=== PATIENT | female | born 1990 | race Caucasian/White ===

== ENCOUNTER 2018-01-18 08:59 | Day surgery (SDC) | payer BC, SELFPAY ==
[~2018-01-18] VITALS: Ht 157.5 cm; Wt 48.5 kg
[~2018-01-18 08:59] MED LIST: DASETTA1 EAC1 PO; IBUP800 PO; MONDOXYNE NL100 MG PO; NAPR500 PO; Naprosyn500 MG PO; OXYACE5T PO; PROM25 PO; RANI150 PO; TRAM50 PO; Ultram50 MG PO; VITAMIN C500 MG PO; Verotin-Gr Cap1 EACH PO
== END 2018-01-18 22:43 | disposition home or self-care (01) ==
LOC: ORSCMMR 08:59 → ORD 10:30 → ORSCMMR 10:30
PROVIDERS: Obstetrics & Gynecology
PROC: 0U5F4ZZ Destruction of Cul-de-sac, Percutaneous Endoscopic Approach (ICD-10-PCS; principal; 2018-01-18 10:30)
DX: N94.89 Other specified conditions associated with female genital organs and menstrual cycle (principal); R10.9 Unspecified abdominal pain; N80.3 Endometriosis of pelvic peritoneum
CPT/HCPCS: J1100; J1885; J2250; J2405; J2550; J2710; J2765; J3010; J7120

== ENCOUNTER 2018-01-24 16:38 | Emergency (ER) | payer BC, SELFPAY ==
[~2018-01-24] VITALS: Ht 157.5 cm; Wt 48.5 kg
[2018-01-24 17:58] LABS: BASOPHILS ABSOLUTE AUTO 0.04 K/mm3 (0.00-0.23); BASOPHILS PERCENT AUTO 1 % (0-2); EOSINOPHILS ABSOLUTE AUTO 0.18 K/mm3 (0.00-0.68); EOSINOPHILS PERCENT AUTO 3 % (0-6); Hematocrit 42.6 % (33.0-51.0); Hemoglobin 14.5 g/dL (11.5-16.0); IMMATURE GRAN ABSOLUTE AUTO 0.01 K/mm3 (0.00-0.10); IMMATURE GRAN PERCENT AUTO 0 % (0-1); LYMPHOCYTES ABSOLUTE AUTO 2.12 K/mm3 (0.84-5.20); LYMPHOCYTES PERCENT AUTO 29 % (21-46); MONOCYTES ABSOLUTE AUTO 0.43 K/mm3 (0.16-1.47); MONOCYTES PERCENT AUTO 6 % (4-13); Mean Corpuscular HGB 31.9 pg (26.0-34.0); Mean Corpuscular Volume 94 fL (80-100); Mean Platelet Volume 10.1 fL (9.1-12.4); NEUTROPHILS ABSOLUTE AUTO 4.54 K/mm3 (1.96-9.15); NEUTROPHILS PERCENT AUTO 62 % (41-73); Platelet Count 205 K/mm3 (150-400); RDW Coefficient Variation 11.9 % (11.7-14.2); RDW Standard Deviation 41.2 fL (35.1-46.3); Red Blood Cell Count 4.54 M/mm3 (3.80-5.20); White Blood Cell Count 7.32 K/mm3 (4.00-11.30)
[2018-01-24 18:24] LABS: Alanine Aminotransfer (ALT/SGP 25 U/L (12-78); Albumin, Blood 3.6 g/dL (3.4-5.0); Albumin/Globulin Ratio 0.9 (0.8-1.8); Alk Phos 59 U/L (50-136); Anion Gap 7 mmol/L (6-16); Aspartate Aminotrans (AST/SGOT 12 U/L (12-37); Bilirubin, Total 0.2 mg/dL (0.1-1.0); Blood Urea Nitrogen 10 mg/dL (8-24); Bun/Creatinine Ratio 13.5 (12.0-20.0); CO2, Blood 25 mmol/L (21-32); Calcium, Blood 8.9 mg/dL (8.5-10.1); Chloride, Blood 109 mmol/L (98-108); Creatinine, Blood 0.74 mg/dL (0.40-1.00); Globulin, Blood 4.2 g/dL (2.2-4.0); Glomerular Filtration Rate >60 (60-); Glucose, Blood 98 mg/dL (70-99); Potassium, Blood 3.6 mmol/L (3.5-5.5); Sodium, Blood 141 mmol/L (136-145); Total Protein, Blood 7.8 g/dL (6.4-8.2)
[2018-01-24] MEDS ORDERED: OXYCODONE (19:43)
== END 2018-01-24 21:38 | disposition home or self-care (01) ==
LOC: ER 16:38
PROVIDERS: Physician Assistant
DX: G89.18 Other acute postprocedural pain (principal); R07.9 Chest pain, unspecified; Z79.899 Other long term (current) drug therapy
CPT/HCPCS: 36415; 71260; 80053; 81025; 85025; 85379; 93005; 93010; 99284-25; Q9967

== ENCOUNTER 2018-12-03 06:23 | Day surgery (SDC) | payer OTHER ==
[~2018-12-03] VITALS: Ht 160 cm; Wt 49.1 kg
[~2018-12-03 06:23] MED LIST changes: +APRI1 EACH PO; +Allegra-D 12 H1 EACH PO; +OXYCODONE
--- NOTE | 2018-12-03 08:59 | NUR ---
12/03/18 0859 Kelsi Reina 0843; RECEIVED REPORT FROM [facility]. PT IS STILL NAUSEATED UPON ARRIVAL TO SDU, SHE WAS MEDICATED IN PAR. PT IS RESTING WITH HER EYES CLOSED IN ATTEMPT TO RELEIVE NAUSEA WHILE MEDICATION HAVE A CHANCE TO WORK. WILL MONITOR AND LET HER REST FOR A FEW MINUTES. MOTHER IS AT CHAIRSIDE. CALL LIGHT IN REACH.
== END 2018-12-03 10:18 | disposition home or self-care (01) ==
LOC: ORSCSDS 06:23
PROVIDERS: Obstetrics & Gynecology
PROC: 0U5F4ZZ Destruction of Cul-de-sac, Percutaneous Endoscopic Approach (ICD-10-PCS; principal; 2018-12-03 07:30)
PROC: 3E1P78X Irrigation of Female Reproductive using Irrigating Substance, Via Natural or Artificial Opening, Diagnostic (ICD-10-PCS; principal; 2018-12-03 07:30)
DX: N80.3 Endometriosis of pelvic peritoneum (principal); N94.89 Other specified conditions associated with female genital organs and menstrual cycle
CPT/HCPCS: J0171; J1100; J1885; J2250; J2370; J2405; J2550; J2704; J2710; J2765; J3010; J7120; Q9968

== ENCOUNTER → 2019-03-17 | Outpatient (CLI) | payer OTHER ==
[2019-03-19 04:07] LABS: CHLAMYDIA TRACHOMATIS, NAA Negative (Negative); NEISSERIA GONORRHOEAE, NAA Negative (Negative)
== END | disposition home or self-care (01) ==
LOC: LAB 11:10 → LAB SHORT 11:10
PROVIDERS: Obstetrics & Gynecology
DX: Z34.81 Encounter for supervision of other normal pregnancy, first trimester (principal)
CPT/HCPCS: 87491; 87591; G0123

== ENCOUNTER → 2019-09-04 | Outpatient (CLI) | payer OTHER ==
[~2019-09-04] MED LIST changes: +Calcium Acetat667 MG; +MAGCHL64ER; +PRENATAL TABLE1 EAC2 PO; +Percocet 5-3251 EACH PO
== END | disposition home or self-care (01) ==
LOC: LAB SHORT 18:09 → LAB 18:09
DX: Z34.83 Encounter for supervision of other normal pregnancy, third trimester (principal); Z3A.36 36 weeks gestation of pregnancy
CPT/HCPCS: 87081; 87653

== ENCOUNTER 2019-09-22 14:19 | Inpatient (IN) | payer OTHER ==
[~2019-09-22] VITALS: Ht 160 cm; Wt 59.8 kg
[~2019-09-22 14:19] MED LIST changes: -Calcium Acetat667 MG; -MAGCHL64ER; -PRENATAL TABLE1 EAC2 PO; -Percocet 5-3251 EACH PO
[2019-09-25] MEDS ORDERED: PRENATAL TABLE1 EAC2 PO (07:23)
[2019-09-25] MEDS ORDERED: MAGCHL64ER (07:24)
[2019-09-25] MEDS ORDERED: Calcium Acetat667 MG (07:24)
[2019-09-25 08:15] LABS: BASOPHILS ABSOLUTE AUTO 0.05 K/mm3 (0.00-0.23); BASOPHILS PERCENT AUTO 1 % (0-2); EOSINOPHILS ABSOLUTE AUTO 0.12 K/mm3 (0.00-0.68); EOSINOPHILS PERCENT AUTO 2 % (0-6); Hematocrit 33.8 % (33.0-51.0); Hemoglobin 11.2 g/dL (11.5-16.0); IMMATURE GRAN ABSOLUTE AUTO 0.03 K/mm3 (0.00-0.10); IMMATURE GRAN PERCENT AUTO 1 % (0-1); LYMPHOCYTES ABSOLUTE AUTO 1.76 K/mm3 (0.84-5.20); LYMPHOCYTES PERCENT AUTO 27 % (21-46); MONOCYTES ABSOLUTE AUTO 0.51 K/mm3 (0.16-1.47); MONOCYTES PERCENT AUTO 8 % (4-13); Mean Corpuscular HGB 31.6 pg (26.0-34.0); Mean Corpuscular HGB Conc 33.1 g/dL (31.5-36.5); Mean Corpuscular Volume 96 fL (80-100); Mean Platelet Volume 9.6 fL (9.1-12.4); NEUTROPHILS ABSOLUTE AUTO 3.97 K/mm3 (1.96-9.15); NEUTROPHILS PERCENT AUTO 62 % (41-73); Platelet Count 121 K/mm3 (150-400); RDW Coefficient Variation 13.2 % (11.7-14.2); RDW Standard Deviation 45.7 fL (35.1-46.3); Red Blood Cell Count 3.54 M/mm3 (3.80-5.20); White Blood Cell Count 6.44 K/mm3 (4.00-11.30)
[2019-09-25 10:41] LABS: PCO2 Cord - Arterial 46.3 mmHg (40-50); pH Cord - Arterial 7.31 (7.28-7.35)
[2019-09-25 10:44] LABS: PCO2 Cord - Venous 37.5 mmHg (40-50); PO2 Cord - Venous 26.1 mmHg (28-32); pH Umbilical Cord - Venous 7.38 (7.26-7.35)
[2019-09-26 05:24] LABS: BASOPHILS ABSOLUTE AUTO 0.04 K/mm3 (0.00-0.23); BASOPHILS PERCENT AUTO 1 % (0-2); EOSINOPHILS ABSOLUTE AUTO 0.16 K/mm3 (0.00-0.68); EOSINOPHILS PERCENT AUTO 2 % (0-6); Hematocrit 26.6 % (33.0-51.0); Hemoglobin 8.7 g/dL (11.5-16.0); IMMATURE GRAN ABSOLUTE AUTO 0.03 K/mm3 (0.00-0.10); IMMATURE GRAN PERCENT AUTO 0 % (0-1); LYMPHOCYTES ABSOLUTE AUTO 1.72 K/mm3 (0.84-5.20); LYMPHOCYTES PERCENT AUTO 23 % (21-46); MONOCYTES PERCENT AUTO 5 % (4-13); Mean Corpuscular HGB 31.5 pg (26.0-34.0); Mean Corpuscular HGB Conc 32.7 g/dL (31.5-36.5); Mean Corpuscular Volume 96 fL (80-100); Mean Platelet Volume 9.7 fL (9.1-12.4); NEUTROPHILS ABSOLUTE AUTO 5.24 K/mm3 (1.96-9.15); NEUTROPHILS PERCENT AUTO 69 % (41-73); Platelet Count 119 K/mm3 (150-400); RDW Coefficient Variation 13.5 % (11.7-14.2); RDW Standard Deviation 47.5 fL (35.1-46.3); Red Blood Cell Count 2.76 M/mm3 (3.80-5.20); White Blood Cell Count 7.59 K/mm3 (4.00-11.30)
[2019-09-26] MEDS ORDERED: IBUP800 PO (16:14)
[2019-09-26] MEDS ORDERED: Percocet 5-3251 EACH PO (16:15)
== END 2019-09-26 16:30 | disposition home or self-care (01) | DRG 785 ==
LOC: BC 09-25 07:09
PROVIDERS: ADMIT Obstetrics & Gynecology
PROC: 10D00Z1 Extraction of Products of Conception, Low, Open Approach (ICD-10-PCS; principal; 2019-09-25 09:30)
PROC: 0UT70ZZ Resection of Bilateral Fallopian Tubes, Open Approach (ICD-10-PCS; 2019-09-25 09:30)
DX: O34.211 Maternal care for low transverse scar from previous cesarean delivery (principal); Z37.0 Single live birth; Z3A.39 39 weeks gestation of pregnancy
CPT/HCPCS: 36415; 82803; 85025; 85460; 86850; 86870; 86900; 86901; 88302; 96372; J0694; J1885; J2370; J2405; J2590; J2765; J2791; J3010; J7120

== ENCOUNTER → 2021-08-24 | Outpatient (CLI) | payer BC, OTHER ==
[~2021-08-24] MED LIST changes: +Calcium Acetat667 MG; +MAGCHL64ER; +PRENATAL TABLE1 EAC2 PO; +Percocet 5-3251 EACH PO
== END | disposition home or self-care (01) ==
LOC: LAB 10:15 → LAB SHORT 10:15
DX: N39.0 Urinary tract infection, site not specified (principal)
CPT/HCPCS: 87077; 87086; 87186

== ENCOUNTER 2022-02-24 06:09 | Inpatient (IN) | payer BC, OTHER ==
[~2022-02-24] VITALS: Ht 160 cm; Wt 53.6 kg
[2022-02-24] MEDS ORDERED: Children's Che1 EAC1 PO (06:20)
--- NOTE | 2022-02-24 11:48 | NUR ---
PT ARRIVED TO UNIT FROM PACU AT [place]OX [address]. LAP SITES X'S 3 W/STERI STRIPS C/D/I. OCTAVIO PAD IN PLACE W/NO DRAINAGE PRESENT. PT C/O 09/14 PAIN, TOLERATING SMALL AMT OF CRACKER AND JELLO W/NO N/V. PT MEDICATED WITH TYLENOL AND ROXICODONE PER EMAR. REYES PATENT, DRAINAING SMALL AMT CLEAR YELLOW URINE. DENIES CP OR SOB, LUNGS CLEAR T/O. POST OF VSS. PLAN TO DC TODAY IF MEETS ALL DC CRITERIA.
[2022-02-24 13:27] LABS: BASOPHILS ABSOLUTE AUTO 0.02 K/mm3 (0.00-0.23); BASOPHILS PERCENT AUTO 0 % (0-2); EOSINOPHILS PERCENT AUTO 0 % (0-6); Hematocrit 36.5 % (33.0-51.0); Hemoglobin 12.9 g/dL (11.5-16.0); IMMATURE GRAN ABSOLUTE AUTO 0.03 K/mm3 (0.00-0.10); IMMATURE GRAN PERCENT AUTO 0 % (0-1); LYMPHOCYTES ABSOLUTE AUTO 0.59 K/mm3 (0.84-5.20); LYMPHOCYTES PERCENT AUTO 5 % (21-46); MONOCYTES ABSOLUTE AUTO 0.25 K/mm3 (0.16-1.47); MONOCYTES PERCENT AUTO 2 % (4-13); Mean Corpuscular HGB 32.3 pg (26.0-34.0); Mean Corpuscular HGB Conc 35.3 g/dL (31.5-36.5); Mean Corpuscular Volume 91 fL (80-100); Mean Platelet Volume 9.7 fL (9.1-12.4); NEUTROPHILS ABSOLUTE AUTO 10.56 K/mm3 (1.96-9.15); NEUTROPHILS PERCENT AUTO 92 % (41-73); Platelet Count 192 K/mm3 (150-400); RDW Coefficient Variation 12.1 % (11.7-14.2); RDW Standard Deviation 40.5 fL (35.1-46.3); White Blood Cell Count 11.45 K/mm3 (4.00-11.30)
[2022-02-24] MEDS ORDERED: Percocet 5-3251 EACH PO (15:54)
[2022-02-24] MEDS ORDERED: IBU800 MG PO (15:55)
--- NOTE | 2022-02-24 16:49 | NUR ---
REYES REMOVED AT APROX 1445, PT VOIDED 100 AT 1458, VOIDED 400ML AT 1600. TOLERATING PO PAIN MEDICATION WITH NO N/V. AMBULATING INDEPENDENTLY IN HALLWAY WITH MIN DISCOMFORT. REQUESTING TO DC HOME. PT MEETS DC CRITERIA. WRITTEN RX GIVEN TO PT, COPY IN CHART. WC TO CAR. DR WARNER NOTIFIED
== END 2022-02-24 16:55 | disposition home or self-care (01) | DRG 743 ==
LOC: SURS 06:09 → PRE IP 07:30 → SURS 11:39
PROVIDERS: ADMIT Obstetrics & Gynecology
PROC: 0UT9FZZ Resection of Uterus, Via Natural or Artificial Opening With Percutaneous Endoscopic Assistance (ICD-10-PCS; principal; 2022-02-24 07:30)
DX: N80.9 Endometriosis, unspecified (principal); K21.9 Gastro-esophageal reflux disease without esophagitis; Z98.891 History of uterine scar from previous surgery; Z88.8 Allergy status to other drugs, medicaments and biological substances
CPT/HCPCS: 36415; 85025; 88307; A9270; J0690; J1100; J1885; J2250; J2270; J2405; J2550; J2704; J3010; J7120

== ENCOUNTER 2024-08-04 18:58 | Emergency (ER) | payer BC, OTHER ==
[~2024-08-04] VITALS: Ht 160 cm; Wt 44.5 kg
[~2024-08-04 18:58] MED LIST changes: +Children's Che1 EAC1 PO; +IBU800 MG PO
[2024-08-04 19:24] VITALS: BP 93/70
[2024-08-04 19:49] LABS: BASOPHILS ABSOLUTE AUTO 0.03 K/mm3 (0.00-0.23); BASOPHILS PERCENT AUTO 1 % (0-2); EOSINOPHILS PERCENT AUTO 5 % (0-6); Hematocrit 45.3 % (33.0-51.0); Hemoglobin 15.6 g/dL (11.5-16.0); IMMATURE GRAN ABSOLUTE AUTO 0.01 K/mm3 (0.00-0.10); IMMATURE GRAN PERCENT AUTO 0 % (0-1); LYMPHOCYTES ABSOLUTE AUTO 1.36 K/mm3 (0.84-5.20); LYMPHOCYTES PERCENT AUTO 32 % (21-46); MONOCYTES ABSOLUTE AUTO 0.34 K/mm3 (0.16-1.47); MONOCYTES PERCENT AUTO 8 % (4-13); Mean Corpuscular HGB 32.2 pg (26.0-34.0); Mean Corpuscular HGB Conc 34.4 g/dL (31.5-36.5); Mean Corpuscular Volume 93 fL (80-100); Mean Platelet Volume 10.3 fL (9.1-12.4); NEUTROPHILS ABSOLUTE AUTO 2.37 K/mm3 (1.96-9.15); NEUTROPHILS PERCENT AUTO 55 % (41-73); Platelet Count 142 K/mm3 (150-400); RDW Coefficient Variation 12.2 % (11.7-14.2); RDW Standard Deviation 42.3 fL (35.1-46.3); Red Blood Cell Count 4.85 M/mm3 (3.80-5.20); White Blood Cell Count 4.31 K/mm3 (4.00-11.30)
[2024-08-04 20:08] LABS: Albumin, Blood 3.6 g/dL (3.4-5.0); Albumin/Globulin Ratio 1.1 (0.8-1.8); Bilirubin, Total 0.8 mg/dL (0.1-1.0); Calcium, Blood 8.6 mg/dL (8.5-10.1); Creatinine, Blood 0.86 mg/dL (0.40-1.00); Globulin, Blood 3.4 g/dL (2.2-4.0); Potassium, Blood 3.5 mmol/L (3.5-5.5)
[2024-08-04] MEDS ORDERED: RX Prepack 2 Tabs Ondansetron ODT 4MG UD ONE (22:20)
[2024-08-04] MEDS ORDERED: Ketorolac Tromethamine 15mg Vial IV ONE (22:20)
[2024-08-04 22:23] LABS: Source, Urine Clean Catch
[2024-08-04 22:29] LABS: Bilirubin, Urine Neg (Neg); Blood, Urine 1+ (Neg); Glucose Qualitative, Urine Neg (Neg); Ketones, Urine 2+ (Neg); Leukocyte Esterase, Urine Neg (Neg); Nitrite, Urine Neg (Neg); Protein, Urine 1+ (Neg); Urobilinogen, Urine NORM (Normal)
[2024-08-04 22:31] LABS: Appearance, Urine Clear (Clear); Color, Urine Yellow (P-Yellow)
[2024-08-04 22:36] LABS: Bacteria Few /hpf; Red Blood Cells, Urine 0-2 /hpf (0-2); Squamous Epithelial Cells Mod /hpf (Few); White Blood Cells, Urine Not Seen /hpf (0-5)
== END 2024-08-04 22:37 | disposition home or self-care (01) ==
LOC: ER 18:58
PROVIDERS: Emergency Medicine; Student in an Organized Health Care Education/Training Program
DX: K52.9 Noninfective gastroenteritis and colitis, unspecified (principal); Z90.710 Acquired absence of both cervix and uterus; Z88.1 Allergy status to other antibiotic agents
CPT/HCPCS: 74177; 80053; 81001; 83690; 84703; 85025; 96374-59; 99284-25; A9270; J1885; Q9967